=== PATIENT | female | born 1965 | race Caucasian/White ===

== ENCOUNTER → 2020-07-25 | Outpatient (CLI) | payer OTHER ==
[2020-07-26 10:20] LABS: Candida species (DNA Probe) Positive (NEGATIVE); G. vaginalis (DNA Probe) Negative (NEGATIVE); T. vaginalis (DNA Probe) Negative (NEGATIVE)
[2020-07-26 17:07] LABS: HPV 16 Negative (Negative); HPV 18 Negative (Negative); HPV OTHER HR TYPES Negative (Negative)
== END | disposition home or self-care (01) ==
LOC: LAB 11:30 → LAB SHORT 11:30
PROVIDERS: Obstetrics & Gynecology
DX: Z01.419 Encounter for gynecological examination (general) (routine) without abnormal findings (principal); N94.10 Unspecified dyspareunia
CPT/HCPCS: 87480; 87510; 87624; 87660; G0123

== ENCOUNTER 2020-09-02 14:30 | Emergency (ER) | payer OTHER ==
[~2020-09-02] VITALS: Ht 160 cm; Wt 95.2 kg
[2020-09-02 15:22] LABS: BASOPHILS ABSOLUTE AUTO 0.04 K/mm3 (0.00-0.23); BASOPHILS PERCENT AUTO 1 % (0-2); EOSINOPHILS ABSOLUTE AUTO 0.03 K/mm3 (0.00-0.68); EOSINOPHILS PERCENT AUTO 1 % (0-6); Hematocrit 41.5 % (33.0-51.0); Hemoglobin 14.2 g/dL (11.5-16.0); IMMATURE GRAN ABSOLUTE AUTO 0.03 K/mm3 (0.00-0.10); IMMATURE GRAN PERCENT AUTO 1 % (0-1); LYMPHOCYTES ABSOLUTE AUTO 1.63 K/mm3 (0.84-5.20); LYMPHOCYTES PERCENT AUTO 25 % (21-46); MONOCYTES ABSOLUTE AUTO 0.25 K/mm3 (0.16-1.47); MONOCYTES PERCENT AUTO 4 % (4-13); Mean Corpuscular HGB 30.3 pg (26.0-34.0); Mean Corpuscular HGB Conc 34.2 g/dL (31.5-36.5); Mean Corpuscular Volume 89 fL (80-100); Mean Platelet Volume 11.5 fL (9.1-12.4); NEUTROPHILS ABSOLUTE AUTO 4.51 K/mm3 (1.96-9.15); NEUTROPHILS PERCENT AUTO 69 % (41-73); Platelet Count 230 K/mm3 (150-400); RDW Coefficient Variation 12.9 % (11.7-14.2); RDW Standard Deviation 41.9 fL (35.1-46.3); Red Blood Cell Count 4.68 M/mm3 (3.80-5.20); White Blood Cell Count 6.49 K/mm3 (4.00-11.30)
[2020-09-02 15:35] LABS: Alanine Aminotransfer (ALT/SGP 77 U/L (12-78); Albumin, Blood 3.8 g/dL (3.4-5.0); Albumin/Globulin Ratio 0.9 (0.8-1.8); Alk Phos 44 U/L (50-136); Anion Gap 9 mmol/L (6-16); Aspartate Aminotrans (AST/SGOT 47 U/L (12-37); Bilirubin, Total 0.6 mg/dL (0.1-1.0); Blood Urea Nitrogen 12 mg/dL (8-24); Bun/Creatinine Ratio 22.6 (12.0-20.0); CO2, Blood 25 mmol/L (21-32); Calcium, Blood 9.2 mg/dL (8.5-10.1); Chloride, Blood 105 mmol/L (98-108); Creatinine, Blood 0.53 mg/dL (0.40-1.00); Globulin, Blood 4.3 g/dL (2.2-4.0); Glomerular Filtration Rate >60 (60-); Glucose, Blood 177 mg/dL (70-99); Potassium, Blood 3.1 mmol/L (3.5-5.5); Sodium, Blood 139 mmol/L (136-145); Total Protein, Blood 8.1 g/dL (6.4-8.2); Troponin I <0.015 ng/mL (0.000-0.040)
[2020-09-02 17:28] LABS: Source, Urine Clean Catch
[2020-09-02 17:31] LABS: Appearance, Urine Clear (Clear); Bilirubin, Urine Neg (Neg); Blood, Urine Neg (Neg); Color, Urine Yellow (P-Yellow); Glucose Qualitative, Urine Neg (Neg); Ketones, Urine 2+ (Neg); Leukocyte Esterase, Urine Neg (Neg); Nitrite, Urine Neg (Neg); Protein, Urine Neg (Neg); Urobilinogen, Urine NORM (Normal); pH, Urine 6.5 (5.0-8.0)
[2020-09-02] MEDS ORDERED: MECL12.5 PO (18:01)
== END 2020-09-02 18:25 | disposition home or self-care (01) ==
LOC: ER 14:30
PROVIDERS: Emergency Medicine
DX: R42 Dizziness and giddiness (principal); I10 Essential (primary) hypertension; E78.5 Hyperlipidemia, unspecified
CPT/HCPCS: 80053; 81003; 84484; 85025; 93005; 93010; 99284-25; J7030

== ENCOUNTER → 2023-06-02 | Outpatient (CLI) | payer OTHER ==
[~2023-06-02] MED LIST: AMLODIPINE BES2.5 MG PO; CHLO25B PO; ESCI10 PO; ESTRADIOL-NORE1 EAC1 PO; LOSARTAN POTASS25 M2 PO; MECL12.5 PO; Simvastatin10 MG PO
[2023-06-03 09:12] LABS: Candida species (DNA Probe) Negative (NEGATIVE); G. vaginalis (DNA Probe) Negative (NEGATIVE); T. vaginalis (DNA Probe) Negative (NEGATIVE)
== END ==
LOC: LAB 12:06 → LAB SHORT 12:06
PROVIDERS: Obstetrics & Gynecology
DX: N89.8 Other specified noninflammatory disorders of vagina (principal)
CPT/HCPCS: 87480; 87510; 87660

== ENCOUNTER 2023-10-26 06:07 | Day surgery (SDC) | payer OTHER ==
[~2023-10-26] VITALS: Ht 157.5 cm; Wt 95.1 kg
[2023-10-26] VITALS (14 sets, daily range): BP systolic 70–126; BP diastolic 34–73
[2023-10-26] MEDS ORDERED: CeFAZolin Sodium 2,000 MG in NS 50 ML IV SCH ×2 (06:15→16:00)
[2023-10-26] MEDS ORDERED: Chlorhexidine Mouth Care 15 ML UDC MT SCH (06:15)
[2023-10-26] MEDS ORDERED: OxyCODONE HCL 10 MG TABCR PO SCH (06:15)
[2023-10-26] MEDS ORDERED: Lactated Ringer's 1,000 ML IV SCH ×2 (06:15→09:30)
[2023-10-26] MEDS ORDERED: Ropivacaine 0.5% HCl/Pf 67.75 MG,EPINEPHrine HCL 0.25 MG,Ketorolac Tromethamine 15 MG,C... INFIL SCH (06:15)
[2023-10-26] MEDS ORDERED: Acetaminophen 500 MG Tab PO SCH ×2 (06:15→16:00)
[2023-10-26] MEDS ORDERED: IBUP600 PO (06:26)
[2023-10-26] MEDS ORDERED: OMEPRAZOLE20 M1 PO (06:26)
[2023-10-26] MEDS ORDERED: propofoL 40 ML IV ONE (06:47)
[2023-10-26] MEDS ORDERED: FentaNYL Citrate 50 MCG/ML 2 ML Injection ONE (06:47)
[2023-10-26] MEDS ORDERED: Midazolam HCl 1MG / ML 2ML Vial ONE ×2 (06:47→08:09)
[2023-10-26] MEDS ORDERED: Bupivacaine 0.5% HCl 5 MG/ML 30MLVIAL ONE (06:51)
[2023-10-26] MEDS ORDERED: Ondansetron HCl 2 MG / ML 2ML Vial ONE (07:47)
[2023-10-26] MEDS ORDERED: Dexamethasone Sod Phos 10 MG/ML 1ML VIAL ONE (07:47)
[2023-10-26] MEDS ORDERED: FentaNYL Citrate 50 MCG/ML 2 ML Injection IV PRN ×4 (08:10→10:15)
[2023-10-26] MEDS ORDERED: Labetalol HCL 5 MG/ML 4ML Injection (Single Dose) IV PRN ×2 (08:10→10:15)
[2023-10-26] MEDS ORDERED: Metoclopramide HCl 5MG / ML 2ML Vial IV PRN ×3 (08:10→10:15)
[2023-10-26] MEDS ORDERED: Morphine Sulfate 4 MG/1 ML Injection IV PRN ×2 (08:15→10:15)
[2023-10-26] MEDS ORDERED: ePHEDrine Sulfate 50 MG/ML 1ML Injection ONE (08:29)
[2023-10-26] MEDS ORDERED: HYDROmorphone HCl/Pf 1MG SYR IV PRN (09:30)
[2023-10-26] MEDS ORDERED: Magnesium Hydroxide Conc 10 ML UDC PO PRN (09:30)
[2023-10-26] MEDS ORDERED: Promethazine HCl 25 MG Tab PO PRN (09:30)
[2023-10-26] MEDS ORDERED: Bisacodyl 10 MG Supp PR PRN (09:35)
[2023-10-26] MEDS ORDERED: FLU VACC QS2023-24(6MOS UP)/PF 60 MCG/0.5 ML SYRINGE IM SCH (09:35)
[2023-10-26] MEDS ORDERED: OxyCODONE HCL 5 MG TAB PO PRN ×2 (09:35→09:40)
[2023-10-26] MEDS ORDERED: DiphenhydrAMINE HCL 25 MG Cap PO PRN (09:35)
[2023-10-26] MEDS ORDERED: Prochlorperazine Edisylate 10 mg Vial IV PRN (09:35)
[2023-10-26] MEDS ORDERED: Ondansetron HCl 2 MG / ML 2ML Vial IV PRN (09:40)
[2023-10-26] MEDS ORDERED: Ketorolac Tromethamine 15mg Vial IV SCH (12:00)
[2023-10-26] MEDS ORDERED: Aspir 8181 MG PO (13:51)
[2023-10-26] MEDS ORDERED: OXAYDO5 M2 PO (13:51)
[2023-10-26] MEDS ORDERED: DOCU100 PO (13:52)
--- NOTE | 2023-10-26 14:30 | NUR ---
DISCHARGE SUMMARY S/P R DILLON, AQUACEL CDI, TEDS/POLAR DARCY. A&OX4, VSS/RA, GARIMA PO, VOIDING, AMB FWW/GB, UP TO CHAIR, PHYSICAL THERAPY COMPLETE, PAIN MANAGED, IV DC'D. DISCHARGE INS PROVIDED. PT REP UNDERSTANDING THOSE INSTRUCTIONS. LEFT FLOOR VIA WC WITH DIESEL ENGINE MECHANIC APPRENTICE TO GO HOME WITH WITH ALL PERSONAL PROPERTY INCLUDING DC PACKET, AQUACEL DRESSINGS, POLAR DARCY.
[2023-10-26] MEDS ORDERED: Docusate Sodium 100 MG Cap PO SCH (21:00)
[2023-10-26] MEDS ORDERED: AmLODIPine Besylate 5 MG Tab PO SCH (21:00)
[2023-10-26] MEDS ORDERED: Losartan Potassium 25 MG Tab PO SCH (21:00)
[2023-10-26] MEDS ORDERED: Atorvastatin 10 MG Tab PO SCH (21:00)
[2023-10-27] MEDS ORDERED: Omeprazole 20 MG CapCR PO SCH (06:00)
[2023-10-27] MEDS ORDERED: Citalopram Hydrobromide 20 MG Tab PO SCH (09:00)
[2023-10-27] MEDS ORDERED: HydroCHLOROthiazide 25 mg Tab PO SCH (09:00)
[2023-10-27] MEDS ORDERED: ESTRADIOL NORETHINDRONE PO SCH (09:00)
[2023-10-27] MEDS ORDERED: Aspirin 81 MG Chew PO SCH (09:00)
== END 2023-10-26 14:27 | disposition home or self-care (01) ==
LOC: ORSCMMR 06:07 → ORD 07:30 → ORSCMMR 07:30 → ORD 09:15 → SURS 09:59 → ORSCMMR 14:27
PROVIDERS: Orthopaedic Surgery
PROC: 0SR90JZ Replacement of Right Hip Joint with Synthetic Substitute, Open Approach (ICD-10-PCS; principal; 2023-10-26 07:30)
DX: M16.11 Unilateral primary osteoarthritis, right hip (principal); E11.9 Type 2 diabetes mellitus without complications; I10 Essential (primary) hypertension; E78.5 Hyperlipidemia, unspecified; G47.33 Obstructive sleep apnea (adult) (pediatric); E66.9 Obesity, unspecified; Z68.37 Body mass index [BMI] 37.0-37.9, adult; K21.9 Gastro-esophageal reflux disease without esophagitis; Z79.899 Other long term (current) drug therapy
CPT/HCPCS: 72170; 97110; 97112; 97161; A9270; C1776; J0171; J0690; J0735; J1100; J1885; J2250; J2405; J2704; J2795; J3010; J7120